=== PATIENT | female | born 1985 | race Hispanic/Latino ===

== ENCOUNTER 2022-10-29 09:02 | Emergency (ER) | payer OTHER ==
[~2022-10-29] VITALS: Ht 154.9 cm; Wt 79.9 kg
[~2022-10-29 09:02] MED LIST: CEPHALEXIN500 MG PO; KEFLEX500 MG PO; NAPROXEN375 MG PO; ORSYTHIA1 EACH PO; OXYCODONE-ACET1 EAC1 PO; PERCOCET 5-3251 EACH PO
[2022-10-29] MEDS ORDERED: ONDANSETRON ODT8 MG PO (10:28)
== END 2022-10-29 10:44 | disposition home or self-care (01) ==
LOC: ED 09:02
DX: K29.70 Gastritis, unspecified, without bleeding (principal)
CPT/HCPCS: 36415; 80053; 81003; 83690; 84703; 85025; 96374; 96375; 99284-25; J1885; J2405; J7030

== ENCOUNTER 2023-01-18 19:19 | Emergency (ER) | payer OTHER ==
[~2023-01-18 19:19] MED LIST changes: +ONDANSETRON ODT8 MG PO
[2023-01-18 21:46] VITALS: BP 124/76
== END 2023-01-18 21:45 | disposition home or self-care (01) ==
LOC: ED 19:19
DX: O99.511 Diseases of the respiratory system complicating pregnancy, first trimester (principal); J06.9 Acute upper respiratory infection, unspecified; Z3A.10 10 weeks gestation of pregnancy; Z20.822 Contact with and (suspected) exposure to COVID-19
CPT/HCPCS: 76801; 81003; 87502; 94640; 99284-25; C9803; Q0163; U0002

== ENCOUNTER 2023-08-11 11:12 | Inpatient (IN) | payer OTHER ==
[~2023-08-11] VITALS: Ht 162.6 cm; Wt 91.2 kg
[2023-08-11 11:45] LABS: AMNISURE ROM TEST NEGATIVE
[2023-08-11 12:48] VITALS: BP 122/72
[2023-08-11 13:12] LABS: AMPHETAMINES, UR NEGATIVE (NEGATIVE); BARBITURATES, UR NEGATIVE (NEGATIVE); BENZODIAZEPINES, UR NEGATIVE (NEGATIVE); COCAINE, UR NEGATIVE (NEGATIVE); MARIJUANA (THC), UR NEGATIVE (NEGATIVE); METHADONE, UR NEGATIVE (NEGATIVE); OPIATES, UR NEGATIVE (NEGATIVE); TRICYCLIC ANTIDEPRESSANT, UR NEGATIVE (NEGATIVE)
[2023-08-11 13:13] LABS: BUPRENORPHINE,UR NEGATIVE (NEGATIVE); MDMA, UR NEGATIVE (NEGATIVE); METHAMPHETAMINE, UR NEGATIVE (NEGATIVE); OXYCODONE, UR NEGATIVE (NEGATIVE)
[2023-08-11 13:20] LABS: PHENCYCLIDINE, UR NEGATIVE (NEGATIVE)
[2023-08-11 13:42] LABS: HEMATOCRIT 40.4 % (35.0-50.0); HEMOGLOBIN 13.7 g/dL (12.0-18.0); MCH 30.1 (27-36); MCHC 33.8 g/dl (30-36); MCV 89.1 fl (81-99); RBC 4.54 M/ul (4.3-5.7); RDW 13.6 (10.5-15.0)
[2023-08-11 14:16] LABS: ABO O; ANTIBODY SCREEN NEGATIVE; RH POSITIVE
--- NOTE | 2023-08-11 22:46 | PR ---
[facility] [address], [place] [address] Signed Progress Notes IP Datetime Report Generated by CPN: 08/11/2023 22:46 PROGRESS NOTES: [id number] Impression: Normal Progression of Labor; Reassuring Heart Rate Procedures: Artificial ROM; Sterile Vag Exam Other Procedures: Removal of Cook Cath Plan: Continue Present Management; Anticipate Vaginal Delivery Informed Consent Obtain: Vaginal Delivery VITAL SIGNS: [id number] Vital Signs: Reviewed; Within Normal Limits EXAM: [id number] Dilatation: 6.0 Effacement: 100 Station: -2 Contractions: Irregular MEMBRANES: [id number] ROM Note: amnisure collected Comments: Pt seen and examined. Doing well. Cook cath expressed thru cervix. AROM performed for moderate amount of clear fluid. Pt declines epidural. Reviewed anticipated course of labor and delivery. All questions FETUS A: [id number] FHR Baseline: 130 Variability: Moderate 6-25bpm Accelerations: 15X15 Decelerations: Early Presentation: Vertex Comments on Fetus A: No evidence of metabolic acidosis FETUS B: [id number] Signing Physician: Jodi Reene DO Copies: ~ *Electronically Signed* 08/11/23 7928 JODI RENEE (JULIO) DO PATIENT NAME: COLBY CANTU PROGRESS NOTE DATE OF : 89 PHYSICIAN: JODI RENEE (JD) DO RPT #: [id number] REPORT IS CONFIDENTIAL AND NOT TO BE RELEASED WITHOUT AUTHORIZATION
--- NOTE | 2023-08-12 00:03 | PR ---
[facility] [address], [place] [address] Signed Progress Notes IP Datetime Report Generated by CPN: 08/12/2023 00:03 PROGRESS NOTES: [id number] Impression: Normal Progression of Labor; Reassuring Heart Rate Procedures: Sterile Vag Exam Other Procedures: Removal of Cook Cath Plan: Continue Present Management; Anticipate Vaginal Delivery Informed Consent Obtain: Vaginal Delivery VITAL SIGNS: [id number] Vital Signs: Reviewed; Within Normal Limits EXAM: [id number] Dilatation: 7.0 Effacement: 100 Station: -2 Contractions: q 2-3 min MEMBRANES: [id number] ROM Note: amnisure collected Comments: Pt seen and examined. Doing well. Uncomfortable w/ contractions. Variable decelerations noted but FHT reassuring. Anticipate soon FETUS A: [id number] FHR Baseline: 130 Variability: Moderate 6-25bpm Accelerations: 15X15 Decelerations: Variable FHR Category: Category II Presentation: Vertex Comments on Fetus A: No evidence of metabolic acidosis FETUS B: [id number] Signing Physician: Jodi Renee DO Copies: ~ *Electronically Signed* 08/12/23 0003 JODI RENEE (JULIO) DO PATIENT NAME: COLBY CANTU PROGRESS NOTE DATE OF : 89 PHYSICIAN: JDOI RENEE) DO RPT #: [id number] REPORT IS CONFIDENTIAL AND NOT TO BE RELEASED WITHOUT AUTHORIZATION
[2023-08-12 06:04] LABS: HEMATOCRIT 37.6 % (35.0-50.0); HEMOGLOBIN 12.8 g/dL (12.0-18.0); MCHC 33.9 g/dl (30-36); MCV 88.6 fl (81-99); PLATELET COUNT 247 K/uL (140-440); RBC 4.25 M/ul (4.3-5.7); RDW 13.5 (10.5-15.0)
--- NOTE | 2023-08-12 06:34 | PR ---
[facility] [address], [place] [address] Signed PP Progress Notes Datetime Report Generated by CPN: 08/12/2023 06:34 SUBJECTIVE: [id number] Pain: Within Normal Limits Nausea/Vomiting: Denies Flatus: Yes Bowel Movement: No Vital Signs: [id number] Vital Signs: Reviewed; Within Normal Limits Cardiovascular: Normal Respiratory: Normal Abdomen/Uterus: Abnormal Lochia: Abnormal Vulva/Perineum: Normal Extremities: Normal Incision: Not Applicable Progress: Normal Exam Comments: No vaginal or cervical lacerations. Uterus enlarged with intrauterine clot noted. Clot evacuated manually and no retained products of conception noted. Total QBL at this time 950cc IMPRESSION/PLAN/PROCEDURES: [id number] Impression: Normal Progression Other Impression: hemorrhage Progress Notes: Called to pt room for increased bleeding. Pt w/ continuous slow trickle of blood w/ QBL at that point 545cc. Exam shows no lower genital tract or cevical bleeding. Uterus somewhat enlarged w/ large intracavitary clot. This was evacuated w/ bimanual exam. Uterine cavity palpated and no retained POC noted. Uterus firm and bleeding minimal. Cytotec 800mcg GA, TXA 1g IV, and pitocin 30u in 500cc administered and pt bolusing 1L LR. CBC, Coags, and fibrinogen obtained and pending. Reviewed bleeding w/ pt and all questions answered. Will continue to monitor closely. Signing Physician: Jodi Renee DO Copies: ~ *Electronically Signed* 08/12/23 8833 JODI RENEE (JULIO) DO PATIENT NAME: COLBY CANTU PROGRESS NOTE DATE OF : 89 PHYSICIAN: JODI RENEE) DO RPT #: [id number] REPORT IS CONFIDENTIAL AND NOT TO BE RELEASED WITHOUT AUTHORIZATION
[2023-08-12 07:02] LABS: LYMPHOCYTES, MANUAL DIFF 15; MONOCYTES, MANUAL DIFF 3; NEUTROPHILS, MANUAL DIFF 82
[2023-08-12 09:33] LABS: INR 0.98 (0.80-1.30); PROTIME 12.6 Sec (11.2-14.2)
[2023-08-12 09:35] LABS: PARTIAL THROMBOPLASTIN TIME 29.1 Sec (22.9-41.3)
[2023-08-13 05:34] LABS: HEMOGLOBIN 10.8 g/dL (12.0-18.0)
[2023-08-13 05:36] LABS: HEMATOCRIT 32.3 % (35.0-50.0); MCH 30.3 (27-36); MCHC 33.5 g/dl (30-36); MCV 90.5 fl (81-99); RBC 3.56 M/ul (4.3-5.7); RDW 14.2 (10.5-15.0)
--- NOTE | 2023-08-13 09:16 | PR ---
[facility] [address], [place] [address] Signed PP Progress Notes Datetime Report Generated by CPN: 08/13/2023 09:16 SUBJECTIVE: [id number] Pain: Within Normal Limits Nausea/Vomiting: Denies Flatus: Yes Bowel Movement: No Vital Signs: [id number] Vital Signs: Reviewed; Within Normal Limits Notable Details: BPs normal since delivery, no s/sx PreE EXAM: Ongoing Cardiovascular: Normal Respiratory: Normal Abdomen/Uterus: Normal Lochia: Normal Vulva/Perineum: Not Done Breasts: Not Done CVA Tenderness: Normal Extremities: Normal Incision: Not Applicable Progress: Normal Exam Comments: Fundus firm U-2 nontender IMPRESSION/PLAN/PROCEDURES: [id number] Impression: Normal Progression Other Impression: hemorrhage Plan: Discharge Progress Notes: Pt seen and examined. Doing well. Ambulating, voiding, and tolerating full diet. Pain and lochia minimal. well. No fevers/chills. Normotensive and no RUELAS, RUQ pain, or visual changes. Desires d/c home. Will f/u tomorrow for BP check. Reviewed s/sx preE. Reviewed pp contraception and planning mini-pill. F/U 2 wks Signing Physician: Jodi Renee DO Copies: ~ *Electronically Signed* 08/13/23 0916 JODI RENEE (JULIO) DO PATIENT NAME: COLBY CANTU PROGRESS NOTE DATE OF : 89 PHYSICIAN: JODI RENEE (JD) DO RPT #: [id number] REPORT IS CONFIDENTIAL AND NOT TO BE RELEASED WITHOUT AUTHORIZATION
--- NOTE | 2023-08-13 10:50 | NUR ---
[facility] ROUNDS. PT SLEEPING. DID NOT DISTURB. PROVIDED SILENT PRAYER.
== END 2023-08-13 14:45 | disposition home or self-care (01) | DRG 806 ==
LOC: FBCO 11:12 → FBC 11:55
PROVIDERS: ADMIT Obstetrics & Gynecology; ATTEND Obstetrics & Gynecology
PROC: 10E0XZZ Delivery of Products of Conception, External Approach (ICD-10-PCS; principal; 2023-08-12)
PROC: 0UQMXZZ Repair Vulva, External Approach (ICD-10-PCS; 2023-08-12)
PROC: 10907ZC Drainage of Amniotic Fluid, Therapeutic from Products of Conception, Via Natural or Artificial Opening (ICD-10-PCS; 2023-08-12)
PROC: 0U7C7ZZ Dilation of Cervix, Via Natural or Artificial Opening (ICD-10-PCS; 2023-08-12)
DX: O76 Abnormality in fetal heart rate and rhythm complicating labor and delivery (principal); O72.1 Other immediate postpartum hemorrhage; Z37.0 Single live birth; O69.81X0 Labor and delivery complicated by cord around neck, without compression, not applicable or unspecified; Z3A.39 39 weeks gestation of pregnancy; O71.82 Other specified trauma to perineum and vulva
CPT/HCPCS: 36415; 80307; 84112; 85007; 85027; 85060; 85384; 85610; 85730; 86850; 86900; 86901; A9270; J2405; J7121